=== PATIENT | female | born 1985 | race Caucasian/White ===

== ENCOUNTER 2018-05-14 16:14 | Outpatient (CLI) | payer BC ==
--- NOTE | 2018-05-14 17:57 | RAD ---
LUMBAR SPINE TWO VIEWS: 05/14/18 HISTORY: Low back pain. FINDINGS/IMPRESSION: No fracture or bony destruction is seen. There is grade I anterolisthesis of L5 over S1. Oblique view s would be helpful to evaluate for pars defects. POS: SOPHIA
--- NOTE | 2018-05-14 17:58 | RAD ---
BILATERAL SACROILIAC JOINTS THREE VIEWS: 05/14/18 HISTORY: Low back pain. FINDINGS/IMPRESSION: Mild degenerative changes are seen in the inferior aspects of the SI joints bilaterally. No fracture or dislocation or bony destruction is identified. POS: SOPHIA
== END 2018-05-14 16:15 | disposition home or self-care (01) ==
LOC: BICRAD 16:14
PROVIDERS: ATTEND Internal Medicine
DX: M54.32 Sciatica, left side (principal); M53.3 Sacrococcygeal disorders, not elsewhere classified
CPT/HCPCS: 72100; 72202

== ENCOUNTER 2018-06-03 15:30 | Outpatient (CLI) | payer BC ==
--- NOTE | 2018-06-03 17:26 | MRI ---
NONCONTRAST MRI LUMBAR SPINE: 06/03/18 HISTORY: Left sciatica. Patient having lower back pain with pain extending into the pelvis for approximately o ne month. COMPARISON: None available. FINDINGS: Retroperitoneal structures demonstrate a normal noncontrast MRI appearance. The conus medullaris is normal in appearance and terminates at the L1-2 level. Scattered Schmorl's nodes are seen within the lower thoracic vertebral bodies. Mild end plate degene rative changes are seen at the L4-5 level. There is otherwise normal signal intensity demonstrated th roughout the bone marrow. L1-2 level: There is no disc bulge or disc herniation. Central spinal canal and neural foramina are p atent. L2-3 level: There is no disc bulge or disc herniation. Central spinal canal and neural foramina are p atent. L3-4 level: There is mild disc osteophyte complex. There is linear focus of increased T2 weighted sig nal intensity at the posterior central margin and intervertebral disc suggesting a small annular tear . There is slight effacement of the ventral aspect of the thecal sac. Neural foramina are patent. L4-5 level: There is loss of intervertebral disc height. There is a broad based disc osteophyte compl ex noted. There are mild facet degenerative changes seen. There is slight effacement of the ventral a spect of the thecal sac. There is mild to moderate right sided neural foraminal narrowing with modera te to severe left sided neural foraminal narrowing. L5-S1 level: There is grade I anterolisthesis of L5 on S1. There is questionable subtle pars defects although this is difficult to definitely determine based on MRI evaluation. There is certainly no abnormal increas ed signal intensity seen on the fluid sensitive sequence to suggest stress reaction in the region of presumed pars defects or abnormal signal involving the pars interarticular at this level. There is a mild broad based disc osteophyte complex which results in slight effacement of the ventral aspect of the thecal sac. There is mild right sided neural foraminal narrowing with moderate to severe left meli ed neural foraminal narrowing with suggestion of deformity of the left L5 nerve root within the neura l foramen due to the disc material extending to the neural foramen as well as facet degenerative brar ges. There is a tiny approximately 5 mm increased T2 weighted signal intensity lesion inferior pole right kidney with an 8 mm increased T2 weighted signal intensity focus in the superior pole right kidney wh ich are difficult to characterize due to size which could potentially represent tiny cysts. There is a larger decreased T2 weighted signal intensity lesion mid portion left kidney measuring 2.3 cm which demonstrates slight increased T2 weighted signal intensity on the T1 weighted images. This lesion co uld potentially represent a hemorrhagic cyst, but this cannot be accurately characterized on this exa mination. IMPRESSION: 1. Disc degenerative changes in the lower lumbar spine with moderate to severe left sided neural foraminal narrowing at the L4-5 and L5-S1 levels and suggestion of mild deformity of the L4 and L5 n erve roots. 2. There is mild left convex scoliosis of the lumbar spine. 3. There is a tiny increased T2 weighted signal intensity lesions in each kidney which are diffi cult to characterize but probably represent tiny cysts. There is a larger decreased T2 weighted signa l intensity lesion mid portion left kidney which could potentially represent a hemorrhagic cyst, but this cannot be accurately characterized on this examination. CT scan examination is recommended for f urther evaluation. Code T POS: SOPHIA
== END 2018-06-03 15:31 | disposition home or self-care (01) ==
LOC: BICMRI 15:30
PROVIDERS: ATTEND Internal Medicine
DX: M51.16 Intervertebral disc disorders with radiculopathy, lumbar region (principal); M99.83 Other biomechanical lesions of lumbar region; M99.84 Other biomechanical lesions of sacral region; M41.86 Other forms of scoliosis, lumbar region; N28.9 Disorder of kidney and ureter, unspecified
CPT/HCPCS: 72148

== ENCOUNTER 2022-09-10 07:34 | Outpatient (CLI) | payer BC | END 2022-09-10 07:35 | disposition home or self-care (01) | LOC: BICCT 07:34 | PROVIDERS: ATTEND Nurse Practitioner Family | DX: R42 Dizziness and giddiness (principal); R00.1 Bradycardia, unspecified; H43.399 Other vitreous opacities, unspecified eye; Z87.898 Personal history of other specified conditions | CPT/HCPCS: 70450 ==

== ENCOUNTER 2022-11-27 07:29 | Outpatient (CLI) | payer BC ==
[2022-11-27] MEDS ORDERED: Iopamidol 370 76% 100 ML VIAL ONE (15:25)
== END 2022-11-27 07:30 | disposition home or self-care (01) ==
LOC: BICCT 07:29
PROVIDERS: ATTEND Internal Medicine
DX: N28.1 Cyst of kidney, acquired (principal); M51.37 Other intervertebral disc degeneration, lumbosacral region; M43.17 Spondylolisthesis, lumbosacral region
CPT/HCPCS: 74170; Q9967

== ENCOUNTER 2023-10-13 12:36 | Outpatient (CLI) | payer BC | END 2023-10-13 12:37 | disposition home or self-care (01) | LOC: BICMRI 12:36 | PROVIDERS: ATTEND Internal Medicine | DX: M25.362 Other instability, left knee (principal); S83.242A Other tear of medial meniscus, current injury, left knee, initial encounter; M24.19 Other articular cartilage disorders, other specified site ==

== ENCOUNTER 2023-11-11 12:19 | Outpatient (CLI) | payer BC | END 2023-11-11 12:20 | disposition home or self-care (01) | LOC: BICULT 12:19 | PROVIDERS: ATTEND Urology | DX: N28.1 Cyst of kidney, acquired (principal) | CPT/HCPCS: 76770 ==